=== PATIENT | female | born 1935 | race Caucasian/White ===

== ENCOUNTER 2017-08-07 20:17 | Emergency (ER) | payer MEDICARE ==
[~2017-08-07] VITALS: Ht 165.1 cm; Wt 68.0 kg
[~2017-08-07 20:17] MED LIST: AMLO5TAB PO; ASPIRIN 81MG TA81 MG PO; BETAPACE120 MG PO; Ciprofloxacin250 MG PO; LISINOPRIL20 MG PO; METFORMIN500 MG PO; PLAVIX75 M1 PO; PRILOSEC20 M1 PO; XANAX 0.5MG TA0.5 MG PO; ZETIA10 MG PO
[2017-08-07 21:17] LABS: HEMOGLOBIN 12.3 g/dL (12.2-16.2); LYMPH # 2.3 K/mm3 (0.7-4.5); LYMPH % 36.1 % (10-50.0)
[2017-08-07 21:21] LABS: URINE BILIRUBIN - DIPSTICK NEGATIVE (NEG); URINE BLOOD NEGATIVE (NEG)
[2017-08-07 21:42] LABS: URINE SQUAMOUS CELLS TNTC #/hpf (0-5)
--- NOTE | 2017-08-07 21:48 | Emergency Room Report ---
History of Present Illness Time Seen by [id number] Presenting Problem in Triage Pt arrived:Wheelchair Presenting Problem:C/O DIARRHEA X 2-3 WEEKS WHICH STOPPED AND STARTED AGAIN. C/O SHAKINESS AND WEAKNESS. LOW B/P LAST COUPLE DAYS AND DIDNT TAKE B/P MED TODAY. 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 N Clinical Suspician of Infection? N Mental Status: 1 - Regular (Normal Baseline) Sepsis Risk:Low Sepsis Risk Have you (or family members/close friends) recently traveled outside the [place]? N If Yes, where/when: Have you had exposure to infectious disease within the past month? N TB? Other? Specify: Source patient, RN notes reviewed, old records Exam Limitations no limitations Comment pt with nonspecific weakness but denied any abd pain or vomiting - had diarrhea over the last few weeks but not now - Cardiac Chest Pain Chest pain indicative of cardiac No Timing/Duration this evening Severity moderate ALLERGIES Coded Allergies: Sulfa (Sulfonamide Antibiotics) (09/14/16) Home Medications Active Scripts Clopidogrel Bisulfate (Plavix) 75 MG PO DAILY #30 TAB Prov: 09/15/16 Reported Medications Sotalol Hcl (Sotalol) 120 MG PO DAILY #180 Lisinopril 20 MG PO DAILY #180 Metformin HCL (Metformin) 500 MG PO QAM Metformin HCL (Metformin) 500 MG PO QPM Amlodipine Besylate (Amlodipine) 5 MG PO BID #180 TAB Ezetimibe (Zetia) 10 MG PO DAILY #30 OMEPRAZOLE MAGNESIUM (Prilosec 20MG) 20 MG PO DAILY Alprazolam (Xanax 0.5MG) 0.5 MG PO Q8HP PRN ANXIETY History Medical History General CAD? Yes Angina: No DE: No Hypertension? Yes Hyperlipidemia? Yes CHF? No DVT? No PE? No COPD? No Asthma? No Anemia? No GERD? Yes Gastric ulcers? No GI Bleed? No Hernia? No Thyroid Problems? No Hypothyroidism? No CVA? Yes Seizures? No Diabetes? Yes Insulin Dependent: No Insulin Pump: No Home FSBS? Yes Renal Insuffiency? No End Stage Renal Disease? No UTI? No Stones? No BPH? No GB Disease: Yes Nephritic Syndrome? No Asplenia? No Hepatitis? No Sickle Cell Disease? No Arthritis? No Migraines? No Cataracts? No Glaucoma? No MRSA? No HIV? No TB? No Anxiety? No Depression? No Cancer? No More? No Immunization Hx DT/Tetanus Unknown Flu [id number] Pneumonia Received In Past Surgical Hx Previous Surgery?Y Gallbladder (Other) Family History Family Hx Diabetes Yes CAD Yes Hypertension Yes Hyperlipidemia Yes Cancer No TB No Social History Smoking Hx Smoker: Never Smoker Tobacco: No Alcohol Alcohol: No Drugs none Review of Systems All Other Systems Reviewed and Negative Constitutional see HPI, denies fever, weakness Eyes denies drainage ENT denies: ear pain, epistaxis, throat pain. Respiratory denies cough, denies shortness of breath, denies wheezing Cardiovascular denies chest pain, denies palpitations, denies syncope Gastrointestinal denies constipation, denies vomiting Genitourinary denies: dysuria, frequency, hesitancy. Musculoskeletal denies back pain, denies joint pain, denies joint swelling, denies neck pain Skin denies rash Psychiatric/Neurological denies headache, denies seizure Physical Exam Vital Signs Vital Signs Date Time Temp Pulse Resp B/P Pulse O2 O2 Flow FiO2 Ox Delivery Rate 08/07 2349 63 20 138/60 100 08/07 2312 63 20 141/64 100 08/07 2238 60 20 149/70 100 08/07 2201 60 18 122/65 98 08/07 2122 61 20 169/99 100 08/076 98.1 63 20 138/74 98 08/07 2035 98.1 63 20 138/74 98 - WBC >12,000 or <4,000 or 10% bands? 2 or more SIRS Criteria Met? B/P:138/60 MAP:95 Creatinine >2.0? UA output<0.5ml/kg/hr for 2 hrs? Platelet count >100,000? Lactate >2.0mmol/1? INR >1.2 or PTT > than 60 sec? Evidence of Organ Dysfunction? Provider documented clinical suspician of infection? N Sepsis Criteria Count: 1 Sepsis Risk: Low Sepsis Risk General Appearance no apparent distress Eye Exam - bilateral eye PERRL, bilateral eye EOMI Ear, Nose, Throat normal ENT inspection Neck non-tender Respiratory Status No: respiratory distress. Lung Sounds bilateral: lungs clear. Cardiovascular regular rate/rhythm, systolic murmur Peripheral Pulses Pulses normal Yes Gastrointestinal soft, no organomegaly, no pulsatile mass, no guarding, no rebound Back no CVA tenderness Extremities no calf tenderness, pedal edema Strength 4 Upper Ext (L), 4 Upper Ext (R), 4 Lower Ext (L), 4 Lower Ext (R) Neurologic alert, order schedule clerk II-XII nml as tested, no motor/sensory deficits Reflexes Reflexes normal No Mental status normal mood/affect Skin intact Medical Decision Making LABS/Meds/Orders Pt receiving controlled substance in ED? No Results/Orders Laboratory Tests 08/07/172109: Urine Color YELLOW, Urine Appearance CLEAR, Urine pH 6.0, Ur Specific [place] <= 1.005, Urine Protein NEGATIVE, Urine Ketones NEGATIVE, Urine Blood NEGATIVE, Urine Nitrate NEGATIVE, Urine Bilirubin NEGATIVE, Urine Urobilinogen 0.2, Ur Leukocyte Esterase 1+ H, Urine RBC NONE, Urine WBC 10-20, Ur Squamous Epith Cells TNTC, Urine Bacteria 1+, Urine Glucose NEGATIVE 08/07/17 2100: Creatine Kinase 61, CK-MB (CK-2) Rel Index 1.3, CK and CKMB Interp 0.8, Troponin I < 0.02 08/07/17 2100: Sodium 139, Potassium 4.1, Chloride 102, Carbon Dioxide 25, BUN 24 H, Creatinine 1.1 H, Estimated Creat Clear 42 L, Estimated GFR (MDRD) 48 L, Glucose 177 H, Calcium 9.0, Total Bilirubin 0.4, AST 10 L, ALT 18, Alkaline Phosphatase 79, Total Protein 7.6, Albumin 3.9, Globulin 3.7 H, Albumin/ Globulin Ratio 1.1, WBC 6.4, RBC 3.91 L, Hgb 12.3, Hct 35.2 L, MCV 90.1, RDW 12.8, Plt Count 267, MPV 7.9, Gran % 53.5, Gran # 3.4, Lymphocytes % 36.1, Monocytes % 6.8, Eosinophils % 2.8, Basophils % 0.8, Lymphocytes # 2.3, Monocytes # 0.4, Eosinophils # 0.2, Basophils # 0.1, PUBS MCHC 34.9, MCH 31.4 H Current Medication Orders Sig/Molly Start time Last Medication Dose Route Stop Time Status Admin Sodium Chloride 1,000 ML .Q4H 08/07 2200 AC IV 08/08 0159 Sodium Chloride 10 ML PRN PRN 08/07 2200 AC IV 08/08 214 Sodium Chloride 10 ML PRN PRN 08/07 2100 AC IV 08/08 2053 Sodium Chloride 1,000 ML .Q1H1M 08/07 2100 DC 08/07 IV 08/07 Sodium Chloride 10 ML PRN PRN 08/07 2100 AC IV 08/08 2053 Sodium Chloride 1,000 ML .STK-MED ONE 08/07 2055 DC IV Orders Procedure Date/time Status CARDIAC ENZYMES 08/07 2147 Complete CULTURE, URINE 08/07 2110 Active IV SALINE LOCK 08/07 2053 Active URINALYSIS/COMPLETE 08/07 2053 Complete DIARRHEA PANEL, PCR 08/07 2053 Active CBC WITH AUTO DIFF 08/07 2053 Complete CHEM 12 PROFILE 08/07 2053 Complete Departure Departure Time of Disposition 2355 Disposition DC Home or Self Care(routine) Clinical Impression Primary Impression: UTI (urinary tract infection) Qualifiers: Urinary tract infection type: acute cystitis Hematuria presence: without hematuria Qualified Code: N30.00 - Acute cystitis without hematuria Secondary Impressions: Renal insufficiency Condition STABLE Referrals SAI SALINAS (Family) Patient Instructions DI for Urinary Tract Infection (UTI) Additional Instructions call pcp for culture results and use meds Discharge Counseling Counseled pt/family regarding diagnosis, test results, medications/RX, follow up needs Prescriptions Current Visit Scripts CEPHALEXIN (Keflex 500MG Capsule) 500 MG PO Q8H #21 CAP ED Critical Care Critical Care No at 0003
[2017-08-08] MEDS ORDERED: KEFLEX 500MG.500 MG PO (00:02)
[2017-08-08 00:18] VITALS: BP 173/91
== END 2017-08-08 00:19 | disposition home or self-care (01) ==
LOC: ER 20:17
PROVIDERS: Emergency Medicine
DX: N30.00 Acute cystitis without hematuria (principal); N28.9 Disorder of kidney and ureter, unspecified; K21.9 Gastro-esophageal reflux disease without esophagitis; I10 Essential (primary) hypertension